=== PATIENT | male | born 1935 | race African-American/Black ===

== ENCOUNTER 2016-09-02 18:22 | Inpatient (IN) | payer OTHER ==
[~2016-09-02] VITALS: Ht 185.4 cm; Wt 122.1 kg
[~2016-09-02 18:22] MED LIST: APAP/HYDROCODON1 T13 PO; AZU500 PO; BENAZEPRIL HYDR40 M1 PO; BG MC; CARVEDILOL25 M1 PO; CAT0.1 PO; CEPACOL SORE TH1 LO4 MM; CLINDAMYCIN HC300 MG PO; COL100 PO; CORE25 PO; CYT100 PO; CYTOTEC200 MCG PO; DEXPF IV; DICLOFENAC SOD75 M1 PO; DYA PO; GLIPIZIDE5 MG PO; GLU5 PO; HUMULIN R100 U/1 M1 SC; IPRATROPIUM BROM3 M2 HHN; IRON PO; LAC PO; LEVAQUIN750 MG PO; LOT20 PO; LOV30I SC; NOR5 PO; OMEPRAZOLE20 M2 PO; SULFASALAZINE500 MG PO; TYL325 PO; VITAMIN C500 M4 PO; ZOC20 PO; ZOCOR20 MG PO; ZOFI IV
[2016-09-02 20:06] LABS: BASOPHIL % 0.9 % (0-2); PLATELET COUNT 150 x10^3mcL (130-400)
[2016-09-02 20:07] LABS: RED CELL DISTRIBUTION WIDTH 15.5 % (11.5-14.5)
[2016-09-02 20:09] LABS: CHLORIDE SERUM 105 mmol/L (98-107); GLUCOSE SERUM 62 mg/dL (74-106); POTASSIUM SERUM 3.7 mmol/L (3.5-5.1); SODIUM SERUM 142 mmol/L (136-145)
[2016-09-02 20:14] LABS: ALKALINE PHOSPHATASE 63 U/L (46-116); ALT/SGPT 19 U/L (16-63); AST/SGOT 20 U/L (15-37); BILIRUBIN TOTAL 0.3 mg/dL (0.20-1.00); TOTAL PROTEIN, SERUM 7.3 g/dL (6.4-8.2)
[2016-09-02 20:18] LABS: ALBUMIN 3.3 g/dL (3.4-5.0)
[2016-09-02 21:50] LABS: T3 TOTAL 0.82 ng/mL
[2016-09-02 21:52] LABS: PHOSPHOROUS 3.3 mg/dL (2.5-4.9)
[2016-09-02 21:53] LABS: CHOLESTEROL/HDL RATIO 1.8
[2016-09-02 22:22] LABS: FREE T4 1.05 ng/dL (0.76-1.46); FREE THYROXINE INDEX 2.8 ug/dL (1.4-4.5); T4(THYROXINE) 8.1 ug/dL (4.7-13.3)
[2016-09-02 22:25] VITALS: BP 154/103
[2016-09-02 23:41] VITALS: BP 177/84
[2016-09-03 00:29] LABS: microscopic required? NO
[2016-09-03 00:38] LABS: urine erythrocyte NEGATIVE (NEGATIVE)
[2016-09-03 00:45] LABS: AMPHETAMINE QUAL UR NONE DETECTED (NEG <=1000)
[2016-09-03 05:46] VITALS: BP 157/64
[2016-09-03 06:30] LABS: BASOPHIL % 0.7 % (0-2); PLATELET COUNT 138 x10^3mcL (130-400)
[2016-09-03 06:44] LABS: RED CELL DISTRIBUTION WIDTH 15.5 % (11.5-14.5)
[2016-09-03 07:14] LABS: CARBON DIOXIDE 26.7 mmol/L (21-32); CHLORIDE SERUM 102 mmol/L (98-107); CREATININE SERUM 0.9 mg/dL (0.7-1.3); GLUCOSE SERUM 119 mg/dL (74-106); MAGNESIUM 2.1 mg/dL (1.8-2.4); PHOSPHOROUS 3.6 mg/dL (2.5-4.9); POTASSIUM SERUM 3.4 mmol/L (3.5-5.1); SODIUM SERUM 143 mmol/L (136-145)
[2016-09-03 10:05] VITALS: BP 127/66
[2016-09-03 13:15] VITALS: BP 144/76
[2016-09-03 17:48] VITALS: BP 141/64
[2016-09-03 20:34] VITALS: BP 113/57
[2016-09-04 05:52] VITALS: BP 138/59
[2016-09-04 06:14] LABS: BASOPHIL % 0.5 % (0-2); PLATELET COUNT 130 x10^3mcL (130-400)
[2016-09-04 06:34] LABS: CALCIUM 8.7 mg/dL (8.5-10.1); CARBON DIOXIDE 30.7 mmol/L (21-32); CHLORIDE SERUM 102 mmol/L (98-107); GLUCOSE SERUM 102 mg/dL (74-106); POTASSIUM SERUM 3.8 mmol/L (3.5-5.1); SODIUM SERUM 135 mmol/L (136-145)
[2016-09-04 06:38] LABS: RED CELL DISTRIBUTION WIDTH 15.7 % (11.5-14.5)
[2016-09-04 13:48] VITALS: BP 148/70
[2016-09-04 17:15] VITALS: BP 136/51
[2016-09-04 21:10] VITALS: BP 119/58
[2016-09-05 00:09] VITALS: BP 122/52
[2016-09-05 05:54] VITALS: BP 132/76
[2016-09-05 06:11] LABS: BASOPHIL % 0.4 % (0-2); PLATELET COUNT 141 x10^3mcL (130-400)
[2016-09-05 06:18] LABS: CALCIUM 8.7 mg/dL (8.5-10.1); CHLORIDE SERUM 104 mmol/L (98-107); GLUCOSE SERUM 83 mg/dL (74-106); POTASSIUM SERUM 3.8 mmol/L (3.5-5.1); RED CELL DISTRIBUTION WIDTH 15.8 % (11.5-14.5); SODIUM SERUM 141 mmol/L (136-145)
[2016-09-05 09:37] VITALS: BP 112/42
[2016-09-05] MEDS ORDERED: HEP5I SC (11:46)
[2016-09-05] MEDS ORDERED: CLINDAMYCI600 MG/4 M IV (11:47)
[2016-09-05] MEDS ORDERED: NOVAPLUS F0.05 MG/Ac (11:57)
[2016-09-05] MEDS ORDERED: L40I IV (11:57)
[2016-09-05] MEDS ORDERED: ADOINT TOP (11:58)
[2016-09-05] MEDS ORDERED: ECO81 PO (12:18)
[2016-09-05 12:59] VITALS: BP 112/42
== END 2016-09-05 15:30 | DRG 638 ==
LOC: ED 18:22 → DU 21:29 → MU 21:29 → DU 22:05 → MU 09-03 10:36
PROVIDERS: Emergency Medicine; Family Medicine; ADMIT Family Medicine
DX: E11.628 Type 2 diabetes mellitus with other skin complications (principal); L97.821 Non-pressure chronic ulcer of other part of left lower leg limited to breakdown of skin; L03.116 Cellulitis of left lower limb; E44.0 Moderate protein-calorie malnutrition; I42.9 Cardiomyopathy, unspecified; B95.62 Methicillin resistant Staphylococcus aureus infection as the cause of diseases classified elsewhere; E11.622 Type 2 diabetes mellitus with other skin ulcer; E11.65 Type 2 diabetes mellitus with hyperglycemia; E11.51 Type 2 diabetes mellitus with diabetic peripheral angiopathy without gangrene; N17.0 Acute kidney failure with tubular necrosis; I16.0 Hypertensive urgency; E87.6 Hypokalemia; M06.9 Rheumatoid arthritis, unspecified; E78.5 Hyperlipidemia, unspecified; E03.9 Hypothyroidism, unspecified; D64.9 Anemia, unspecified; E66.9 Obesity, unspecified; Z68.35 Body mass index [BMI] 35.0-35.9, adult; Z96.651 Presence of right artificial knee joint; Z79.4 Long term (current) use of insulin
CPT/HCPCS: 80307; 82962; 83880; 84439; 97110-GP; 97116-GP; 97530-GP; J0696; J1644; J1940; J2270; J2405; J3490; J7030; J7040; Q0092

== ENCOUNTER 2016-11-12 18:41 | Emergency (ER) | payer OTHER ==
[~2016-11-12] VITALS: Ht 185.4 cm; Wt 118.8 kg
[~2016-11-12 18:41] MED LIST changes: +ADOINT TOP; +CLINDAMYCI600 MG/4 M IV; +ECO81 PO; +HEP5I SC; +L40I IV; +NOVAPLUS F0.05 MG/Ac
[2016-11-12 20:33] VITALS: BP 148/85
== END 2016-11-12 20:33 | disposition home or self-care (01) ==
LOC: ED 18:41
DX: B35.6 Tinea cruris (principal); E11.9 Type 2 diabetes mellitus without complications; I10 Essential (primary) hypertension; Z88.6 Allergy status to analgesic agent; Z79.899 Other long term (current) drug therapy

== ENCOUNTER 2016-12-29 10:54 | Emergency (ER) | payer OTHER ==
[2016-12-29 13:16] VITALS: BP 170/70
== END 2016-12-29 13:16 | disposition home or self-care (01) ==
LOC: ED 10:54
DX: J32.9 Chronic sinusitis, unspecified (principal); I10 Essential (primary) hypertension; E11.9 Type 2 diabetes mellitus without complications; K21.9 Gastro-esophageal reflux disease without esophagitis; E78.5 Hyperlipidemia, unspecified; Z88.6 Allergy status to analgesic agent
CPT/HCPCS: Q0092

== ENCOUNTER 2017-01-08 06:13 | Inpatient (IN) | payer OTHER ==
[~2017-01-08] VITALS: Ht 185.4 cm; Wt 117.9 kg
[2017-01-08 06:26] VITALS: BP 197/92
[2017-01-08 12:43] VITALS: BP 160/70
[2017-01-08 17:00] VITALS: BP 166/83
[2017-01-08 17:22] LABS: BASOPHIL % 0.2 % (0-2)
[2017-01-08 17:37] LABS: PLATELET COUNT 123 x10^3mcL (130-400); RED CELL DISTRIBUTION WIDTH 14.7 % (11.5-14.5)
[2017-01-08 18:03] LABS: FREE T4 1.39 ng/dL (0.76-1.46); FREE THYROXINE INDEX 3.8 ug/dL (1.4-4.5); T3 TOTAL 0.87 ng/mL; T4(THYROXINE) 9.8 ug/dL (4.7-13.3)
[2017-01-08 18:21] LABS: AMYLASE 31 U/L (25-115); CALCIUM 8.4 mg/dL (8.5-10.1); CARBON DIOXIDE 26.1 mmol/L (21-32); CHLORIDE SERUM 105 mmol/L (98-107); CHOLESTEROL 138 mg/dL (<200); CHOLESTEROL/HDL RATIO 2.4; CREATININE SERUM 0.8 mg/dL (0.7-1.3); GLUCOSE SERUM 235 mg/dL (74-106); HDL CHOLESTEROL 58 mg/dL (40-60); LIPASE 56 IU/L (73-393); MAGNESIUM 1.9 mg/dL (1.8-2.4); PHOSPHOROUS 3.6 mg/dL (2.5-4.9); POTASSIUM SERUM 4.1 mmol/L (3.5-5.1); SODIUM SERUM 143 mmol/L (136-145); TRIGLYCERIDES 35 mg/dL (<150)
[2017-01-08 21:03] VITALS: BP 146/82
[2017-01-09 05:22] VITALS: BP 125/61
[2017-01-09 07:53] LABS: CALCIUM 8.1 mg/dL (8.5-10.1); CARBON DIOXIDE 31.4 mmol/L (21-32); CHLORIDE SERUM 102 mmol/L (98-107); CREATININE SERUM 1.1 mg/dL (0.7-1.3); GLUCOSE SERUM 205 mg/dL (74-106); MAGNESIUM 1.9 mg/dL (1.8-2.4); PHOSPHOROUS 3.2 mg/dL (2.5-4.9); POTASSIUM SERUM 4.3 mmol/L (3.5-5.1); SODIUM SERUM 139 mmol/L (136-145)
[2017-01-09 08:56] LABS: BASOPHIL % 0.3 % (0-2); PLATELET COUNT 153 x10^3mcL (130-400)
[2017-01-09 09:03] LABS: RED CELL DISTRIBUTION WIDTH 14.8 % (11.5-14.5)
[2017-01-09 09:31] VITALS: BP 154/55
[2017-01-09 16:15] VITALS: BP 150/57
[2017-01-09 21:43] VITALS: BP 158/55
[2017-01-09 22:57] VITALS: BP 140/60
[2017-01-10 05:33] VITALS: BP 132/46
[2017-01-10 06:21] LABS: BASOPHIL % 0.3 % (0-2); RED CELL DISTRIBUTION WIDTH 14.5 % (11.5-14.5)
[2017-01-10 06:23] LABS: PLATELET COUNT 122 x10^3mcL (130-400)
[2017-01-10 06:29] LABS: microscopic required? NO
[2017-01-10 06:31] LABS: CALCIUM 8.3 mg/dL (8.5-10.1); CARBON DIOXIDE 30.2 mmol/L (21-32); CHLORIDE SERUM 99 mmol/L (98-107); CREATININE SERUM 0.9 mg/dL (0.7-1.3); GLUCOSE SERUM 208 mg/dL (74-106); SODIUM SERUM 134 mmol/L (136-145)
[2017-01-10 06:47] LABS: UA SPECIFIC GRAVITY 1.015 (1.005-1.035); urine erythrocyte NEGATIVE (NEGATIVE)
[2017-01-10 09:52] VITALS: BP 129/47
[2017-01-10 13:59] VITALS: BP 144/56
[2017-01-10 15:57] VITALS: BP 135/70
== END 2017-01-10 18:42 | DRG 469 ==
LOC: MU 06:13
PROVIDERS: Neuromusculoskeletal Medicine, Sports Medicine; ADMIT Family Medicine
PROC: 0SRD0JZ Replacement of Left Knee Joint with Synthetic Substitute, Open Approach (ICD-10-PCS; principal; 2017-01-08 07:30)
PROC: 30233N1 Transfusion of Nonautologous Red Blood Cells into Peripheral Vein, Percutaneous Approach (ICD-10-PCS; 2017-01-10)
DX: M17.12 Unilateral primary osteoarthritis, left knee (principal); N17.0 Acute kidney failure with tubular necrosis; D62 Acute posthemorrhagic anemia; E11.65 Type 2 diabetes mellitus with hyperglycemia; E11.51 Type 2 diabetes mellitus with diabetic peripheral angiopathy without gangrene; I11.9 Hypertensive heart disease without heart failure; E03.9 Hypothyroidism, unspecified; E78.5 Hyperlipidemia, unspecified; E66.9 Obesity, unspecified; Z68.34 Body mass index [BMI] 34.0-34.9, adult
CPT/HCPCS: 82962; 84439; 94150; 97110-GP; 97116-GP; 97139; 97530-GP; C1713; C1776; J0690; J1170; J1650; J2175; J2250; J2270; J2405; J2704; J3010; J3490; J7030; J7050; P9016; Q0092; Q0163

== ENCOUNTER 2018-08-16 00:09 | Emergency (ER) | payer OTHER ==
[~2018-08-16] VITALS: Ht 185.4 cm; Wt 120.7 kg
[2018-08-16 00:17] VITALS: Ht 185.4 cm; Wt 120.7 kg
[2018-08-16 02:31] VITALS: BP 179/91
== END 2018-08-16 02:31 | disposition home or self-care (01) ==
LOC: ED 00:09
DX: R09.89 Other specified symptoms and signs involving the circulatory and respiratory systems (principal); I10 Essential (primary) hypertension; E11.9 Type 2 diabetes mellitus without complications; Z88.8 Allergy status to other drugs, medicaments and biological substances
CPT/HCPCS: J2001

== ENCOUNTER 2019-10-28 13:14 | Emergency (ER) | payer OTHER, SELFPAY ==
[~2019-10-28] VITALS: Ht 185.4 cm; Wt 115.2 kg
[2019-10-28 14:28] VITALS: Ht 185.4 cm; Wt 115.2 kg
[2019-10-28 15:22] VITALS: BP 178/78
== END 2019-10-28 15:22 | disposition home or self-care (01) ==
LOC: ED 13:14
DX: U07.1 COVID-19 (principal); I10 Essential (primary) hypertension; E11.9 Type 2 diabetes mellitus without complications; Z98.890 Other specified postprocedural states; Z88.6 Allergy status to analgesic agent
CPT/HCPCS: U0003-CS